=== PATIENT | male | born 1975 | race Caucasian/White ===

== ENCOUNTER → 2016-06-03 | Outpatient (CLI) | payer BC ==
--- NOTE | 2016-06-08 08:59 | SLEEPHOME ---
DATE OF PROCEDURE: 06/03/2016 REFERRING PROVIDER: Georgina Dent NP INTERPRETATION: Diagnostic home sleep testing was performed due to concern for the obstructive sleep apnea syndrome. For testing, a NOX-T3 respiratory monitoring device was utilized. Continuous record was made of pulse, oxygen saturation, chest and abdominal strain, air flow, and body position. 9 hours and 59 minutes of data were reviewed. There were 8 hours and 31 identified as time in bed. During the interval marked time in bed, there were 159 respiratory events identified of 10 seconds in duration or greater for a respiratory event index of 18.6. The events were primarily obstructive. Occasional mixed and central apneas were also seen. Baseline pulse rate 63 beats per minute. Pulse rate ranged 49 to 142 beats per minute. Baseline oxygen saturation 91%. Lowest oxygen saturation 78%. Testing was performed in both the supine and nonsupine positions. IMPRESSION: Abnormal home sleep testing with repetitive respiratory events and oxygen desaturations to 78% with a respiratory event index of 18.6 is consistent with the obstructive sleep apnea syndrome. RECOMMENDATION: The patient should be referred for in laboratory pressure titration given the profound oxygen desaturations identified.
== END ==
LOC: M SLEEP HO 13:48
PROVIDERS: ATTEND Nurse Practitioner Adult Health
DX: G47.30 Sleep apnea, unspecified (principal)

== ENCOUNTER → 2016-12-09 | Outpatient (REF) | payer BC | LOC: M LABNEURO 13:43 | PROVIDERS: ATTEND Psychiatry & Neurology Neurology | DX: E07.9 Disorder of thyroid, unspecified (principal); Z13.1 Encounter for screening for diabetes mellitus ==

== ENCOUNTER → 2016-12-09 | Outpatient (REF) | payer BC ==
[2016-12-09 14:44] LABS: MEAN CORPUSCULAR HEMOGLOBIN 30.7 pg (27.0-33.0); MEAN CORPUSCULAR HGB CONC 33.1 g/dl (32.0-36.5); MEAN CORPUSCULAR VOLUME 92.6 fl (80.0-96.0); RED CELL DISTRIBUTION WIDTH 12.7 % (11.5-14.5)
[2016-12-09 14:45] LABS: ALBUMIN 4.1 GM/DL (3.2-5.2); ALBUMIN/GLOBULIN RATIO 1.24 (1.00-1.93); ALKALINE PHOSPHATASE 98 U/L (45-117); ALT/SGPT 115 U/L (12-78); ANION GAP 6 MEQ/L (8-16); AST/SGOT 46 U/L (15-37); BILIRUBIN,DIRECT 0.2 MG/DL (0.0-0.2); BILIRUBIN,TOTAL 0.7 MG/DL (0.2-1.0); BLOOD UREA NITROGEN 19 MG/DL (7-18); CALCIUM LEVEL 9.4 MG/DL (8.5-10.1); CARBON DIOXIDE LEVEL 28 MEQ/L (21-32); CHLORIDE LEVEL 108 MEQ/L (98-107); GLOMERULAR FILTRATION RATE > 60.0 (>60); GLUCOSE, FASTING 103 MG/DL (70-105); POTASSIUM SERUM 4.6 MEQ/L (3.5-5.1); SODIUM LEVEL 142 MEQ/L (136-145); TOTAL PROTEIN 7.4 GM/DL (6.4-8.2)
== END ==
LOC: M LABNEURO 13:44
PROVIDERS: ATTEND Family Medicine
DX: E78.2 Mixed hyperlipidemia (principal)

== ENCOUNTER → 2016-12-15 | Outpatient (REF) | payer BC ==
[2016-12-15 19:57] LABS: CHOLESTEROL LEVEL 170 MG/DL (<200); FREE T4 1.04 NG/DL (0.76-1.46); TRIGLYCERIDES LEVEL 331 MG/DL (<150)
== END ==
LOC: M LABNEURO 13:43
PROVIDERS: ATTEND Family Medicine
DX: E78.2 Mixed hyperlipidemia (principal)